=== PATIENT | male | born 1930 | race Caucasian/White ===

== ENCOUNTER 2016-05-11 12:35 | Inpatient (IN) | payer MEDICARE, OTHER ==
--- NOTE | 2016-05-11 12:46 | HP ---
SUPERVISING PHYSICIAN: ANA EDMOND MD CHIEF COMPLAINT: Right foot pain. HISTORY OF PRESENT ILLNESS: This is an 85 year-old male patient who was seeing his primary care physician, Dr. Adams, this morning because his right foot was hurting. He stated that about a week ago, he has a callous on the bottom of his foot and it started hurting and in the last 2 days it has gotten very swollen, very reddened and is also painful. He went to see Dr. Adams today and Dr. Adams saw that he had some cellulitis that most likely originated from the callous on the ball of his foot. His foot was very tender to palpation. He was able to palpate a pedal pulse but he could not obtain a dorsalis pedis due to the edema. Blood work was done at [facility] and he had a white count of 13 and an ESR of 24. His glucose was 154 without any history of diabetes. BUN was 27, creatinine 1.5, sodium 139, potassium 4.3, chloride 102, C02 of 26, calcium 8.6. He was having a difficult time walking on his foot and I was called for a direct admission for cellulitis to that right foot. PAST MEDICAL HISTORY: 1. Mild chronic obstructive pulmonary disease. 2. Gastroesophageal reflux disease. 3. Hyperlipidemia. 4. Myocardial infarction. 5. Hypertensive heart disease with a sent placement. He had an echocardiogram done in 2011 with an ejection fraction of 60 to 65%. 6. Benign prostatic hypertrophy. PAST SURGICAL HISTORY: 1. Appendectomy. 2. Bilaterally cataract removal. 3. Coronary artery stent placement. 4. Bladder surgery. CURRENT MEDICATIONS: Per the EMR and awaiting verification. CODE STATUS: Full code. FAMILY HISTORY: Positive for type 2 diabetes. SOCIAL HISTORY: He is retired, he is , he has 7 children. He denies any ETOH, tobacco or illicit drug use. REVIEW OF SYSTEMS: GENERAL: Denies chills, fever or fatigue. HEENT: Denies sinus symptoms, ear pain, vision changes. CARDIOVASCULAR: Denies chest pain, tachycardia or palpitations. RESPIRATORY: Denies coughing, wheezing or shortness of breath. GI: Denies abdominal pain, constipation, diarrhea, nausea or vomiting. MUSCULOSKELETAL: Complains of right leg pain and difficulty walking. INTEGUMENT: As per the history of present illness. NEUROLOGICAL: Denies headaches. dizziness or seizures. PHYSICAL EXAMINATION: VITAL SIGNS: He is afebrile. Heart rate 69, blood pressure 123/73, respiratory rate 22, 02 saturation 92% on room air. GENERAL: This is an 85 year-old male patient who is lying in his hospital bed. He is in no acute distress. HEENT: Normocephalic and atraumatic. Pupils are equal and reactive. Oropharynx is clear. Oral mucous membranes are moist. NECK: Supple without masses. No jugular venous distention. CHEST: Clear to auscultation bilaterally. There is equal rise and fall of inspiration and expiration. CARDIOVASCULAR: Regular rate and rhythm. ABDOMEN: Soft, nondistended, non-tender. Bowel sounds are positive. SKIN/EXTREMITIES: There is cellulitis to the right foot and lower leg starting around the ankle. The right foot is warm and erythematous. The erythema extends slightly up into the posterior right leg. There is a callous on the ball of his right foot that is large, approximately 3cm. It is infected and has a large area of induration of 5-6 cm, but there is no fluctuance or drainage. NEUROLOGIC: He is awake, alert, and oriented x3. LABORATORY: As per the history of present illness with the exception that his CRP is 15.4. Blood cultures have been drawn and are awaiting results. All other labs and films have been reviewed via the EMR. ASSESSMENT: 1. Right foot cellulitis. 2. Hypertensive heart disease with an echocardiogram in 2011 showing an ejection fraction of 60 to 65%. 3. Gastroesophageal reflux disease. 4. Mild chronic obstructive pulmonary disease. 5. Myocardial infarction with a stent. 6. Hyperlipidemia. 7. Benign prostatic hypertrophy. PLAN: We will admit the patient to the hospital. I will start vancomycin per pharmacy. Will also give him some judicious fluids overnight. Repeat labs in the morning. He does have a history of this callous being infected in the past , although an MRI in 2013 showed no osteomyelitis. Continue to watch it closely. Encourage good pulmonary toilet. I have started Xopenex for DVT prophylaxis as well as Protonix also for prophylaxis. I have restarted his home medications. We will continue to monitor the patient closely and followup as needed. Dr. Edmond is the collaborating physician and available for consultation. #[id number] [facility]
[2016-05-11] MEDS ORDERED: VANCOMYCIN PER PHARMACY INJ SCH (14:30)
[2016-05-11] MEDS ORDERED: SODIUM CHLORIDE 0.9% 10 ML VIAL IV PRN (15:14)
[2016-05-11] MEDS ORDERED: VANCOMYCIN HCL INJ 500 MG VIAL ONE (15:38)
[2016-05-11] MEDS ORDERED: SODIUM CHLORIDE 0.9% 250ML 250 ML ONE (15:38)
[2016-05-11] MEDS: SODIUM CHLORIDE 0.9% 1000ML 1,000 ML IVS PRN (15:47)
[2016-05-11] MEDS ORDERED: VANCOMYCIN HCL INJ 1,000 MG, VANCOMYCIN HCL INJ 500 MG in SODIUM CHLORIDE 0.9% 250ML 25... IVPB SCH (16:00)
[2016-05-11] MEDS: IV SET AND CAP CHANGE INJ INJ SCH (17:34)
[2016-05-11] MEDS ORDERED: SODIUM CHLORIDE 0.9% (FLUSH) 10 ML SYG IV SCH (21:00)
--- NOTE | 2016-05-11 21:23 | PCM.CORE ---
Physician DVT/VTE - Prophylaxis Currently: Patient already on anticoagulation therapy - Nurse DVT Assessment & Total Each Risk Factor Represents 3 Points: Age over 75 years Each Risk Factor is 1 Point: Serious Lung disease (pnemonia <1month, COPD, emphysema,etc) DVT Assessment Score: 4 - 3-4 High Risk Treatments: Early Ambulation *, Sequential Compression Device
[2016-05-11] MEDS: ENOXAPARIN SODIUM 40 MG/0.4 ML SYG SUBCU SCH (22:44)
[2016-05-11] MEDS: PANTOPRAZOLE SODIUM IV 40 MG VIAL IV SCH (22:44)
[2016-05-11] MEDS: SODIUM CHLORIDE 0.9% (FLUSH) 10 ML SYG IV PRN (22:44)
[2016-05-12] MEDS ORDERED: VANCOMYCIN HCL INJ 500 MG VIAL ONE ×3 (02:22→15:54)
[2016-05-12] MEDS ORDERED: SODIUM CHLORIDE 0.9% 250ML 250 ML ONE ×3 (02:23→15:55)
[2016-05-12] MEDS ORDERED: VANCOMYCIN HCL INJ 1,000 MG VIAL IVPB ONE ×3 (02:23→15:55)
[2016-05-12] MEDS: SODIUM CHLORIDE 0.9% 1000ML 1,000 ML IVS PRN (03:41)
[2016-05-12] MEDS: ATORVASTATIN 10 MG TAB PO SCH (08:46)
[2016-05-12] MEDS: DUTASTERIDE 0.5 MG CAP PO SCH (08:47)
[2016-05-12] MEDS: SODIUM CHLORIDE 0.9% (FLUSH) 10 ML SYG IV SCH ×3 (10:18→21:05)
--- NOTE | 2016-05-12 13:21 | PN ---
SUPERVISING PHYSICIAN: Erick Guy MD DATE: 05/12/16 SUBJECTIVE: The patient is lying in bed. He is visiting with friends. He denies any chest pain, shortness of breath, nausea, vomiting. He still says he has some pain on the medial aspect of the Achilles that extends to the medial malleolus, but it is improved since yesterday. He states he continues to limp when he goes to the bathroom, but again that is improving. OBJECTIVE: VITAL SIGNS: Afebrile. Heart rate 60. Blood pressure 118/71. Respiratory rate 18. O2 saturation 92% to 93% on room air. GENERAL: This is an 85-year-old male patient who is lying in his hospital bed. He is in no acute distress. LUNGS: Clear to auscultation bilaterally. CARDIAC: Regular rate and rhythm. ABDOMEN: Soft, nontender, nondistended. Bowel sounds are positive. EXTREMITIES: He continues to have cellulitis to the right foot. The erythema is improved and is now distal to the medial and lateral malleolus. There is no drainage or fluctuation and the callus on the ball of his foot continues to be tender to palpation. His right pedal pulse is strong at +2. His posterior tibial pulse is very weak, although I am able to palpate it today. The foot continues to improve from yesterday. His left foot has no cyanosis, clubbing or edema. NEUROLOGIC: Awake, alert and oriented times three. LABORATORY: WBC 9.3, neutrophils 78.7, hemoglobin 13.2, hematocrit 39.6. BUN 23, creatinine 1.14. C-reactive protein from yesterday is 15.4 and his preliminary blood cultures are negative to date. All other labs and films have been reviewed via the EMR. ASSESSMENT: 1. Cellulitis of the right lower extremity. 2. Hypertensive heart disease with an echocardiogram in 2012 showing an ejection fraction of 60% to 65%. 3. Gastroesophageal reflux disease. 4. Mild chronic obstructive pulmonary disease. 5. Myocardial infarction with a stent. 6. Hyperlipidemia. 7. Benign prostatic hypertrophy. 8. Bladder problems. PLAN: We will continue with present antibiotic therapy which is vancomycin. He gets his IV antibiotics scheduled every 36 hours per pharmacy and I would like to get in at least three total doses which will be sometime on Tuesday. I have spoken with Dr. Adams and he agrees that close followup after discharge on oral antibiotics would be appropriate. I am also going to get an arterial sonogram as well as venous Doppler today. We will check his CRP on Tuesday as well as some labs. We will encourage good pulmonary toilet. We will continue to followup as needed. Dr. Guy is the collaborating physician and available for consultation. [facility][id number] [facility]
--- NOTE | 2016-05-12 15:18 | US ---
EXAM DESCRIPTION: Extremity, lower RT Arteries CLINICAL HISTORY: 85 years Male, cellulitis COMPARISON: None. TECHNIQUE: Grayscale, color Doppler and spectral Doppler imaging of the right lower extremity arteries was performed. Static images were saved to the patient's medical record. FINDINGS: Today's exam demonstrates normal waveform and peak systolic velocities of the arteries of the right lower extremity. No abrupt occlusion on today's exam. Scattered atherosclerotic disease is noted, age appropriate. IMPRESSION: No abrupt occlusion on today's study. The right posterior tibial artery, dorsalis pedis, and peroneal artery are visualized on today's study. The anterior tibial artery is poorly visualized on today's study. Electronically signed by: Jesus Still MD 05/12/2016 3:17 PM [employer]
[2016-05-12] MEDS: VANCOMYCIN HCL INJ 1,000 MG, VANCOMYCIN HCL INJ 250 MG in SODIUM CHLORIDE 0.9% 250ML 25... IVPB SCH (15:56)
[2016-05-12] MEDS ORDERED: ACETAMINOPHEN 325 MG TAB PO PRN (19:55)
[2016-05-12] MEDS ORDERED: HYDROcodone 5MG/APAP 325MG 1 EA TAB PO PRN (19:55)
[2016-05-12] MEDS: ENOXAPARIN SODIUM 40 MG/0.4 ML SYG SUBCU SCH (21:06)
[2016-05-12] MEDS: PANTOPRAZOLE SODIUM IV 40 MG VIAL IV SCH (21:06)
[2016-05-12] MEDS: TAMSULOSIN 0.4 MG CAP PO SCH (21:06)
[2016-05-13] MEDS ORDERED: SODIUM CHLORIDE 0.9% 250ML 250 ML ONE (07:49)
[2016-05-13] MEDS ORDERED: VANCOMYCIN HCL INJ 500 MG VIAL ONE (07:49)
[2016-05-13] MEDS ORDERED: VANCOMYCIN HCL INJ 1,000 MG VIAL IVPB ONE (07:50)
[2016-05-13] MEDS: DUTASTERIDE 0.5 MG CAP PO SCH (08:36)
[2016-05-13] MEDS: ATORVASTATIN 10 MG TAB PO SCH (08:36)
[2016-05-13] MEDS: SODIUM CHLORIDE 0.9% (FLUSH) 10 ML SYG IV SCH ×2 (08:37→21:30)
[2016-05-13] MEDS: VANCOMYCIN HCL INJ 1,000 MG, VANCOMYCIN HCL INJ 250 MG in SODIUM CHLORIDE 0.9% 250ML 25... IVPB SCH (16:44)
--- NOTE | 2016-05-13 18:25 | PN ---
DATE: 05/13/16 SUPERVISING PHYSICIAN: Erick Guy M.D. SUBJECTIVE: The patient is sitting up in his hospital bed. He is vising with relatives. He is continuing to ask when he can get out of the hospital although he does realize that he will have to continue his antibiotic therapy for now. He denies any chest pain, shortness of breath, nausea or vomiting, diarrhea or constipation. He stated he had a bowel movement today. His right foot continues to be painful at times, but it has improved. OBJECTIVE: He is afebrile, heart rate 58, blood pressure 107/59, respiratory rate 20, O2 sat is 91% on room air. GENERAL: This is an 85 year-old male patient who is lying in his hospital bed. He is in no acute distress. RESPIRATORY: Clear to auscultation bilaterally. CARDIAC: Regular rate and rhythm. ABDOMEN: Soft, nondistended, non-tender. Bowel sounds are positive. EXTREMITIES: No cyanosis or edema to the left lower extremity. The erythema on his right foot is along the medial portion of his foot from the medial malleolus to the heel. The dorsal portion of his foot is erythematous from mid foot extending to the toes, although his second and third toes are no longer reddened. The callus to the ball of the foot is tender to palpation. The edema is much improved since yesterday and is now about +1 from the mid foot extending distally. The foot is greatly improved from yesterday, although it is still warm. NEUROLOGIC: He is awake, alert and oriented times three. LABORATORY: Blood cultures showed no growth after 48 hours. The lower extremity ultrasound from yesterday shows no abrupt occlusion on the study of the right posterior tibial artery. The dorsalis pedis and peroneal artery are visualized on today's study and the anterior tibial artery is poorly visualized. All other labs and films have been reviewed via the EMR. ASSESSMENT: 1. Cellulitis of the right lower extremity presently on vancomycin. 2. Hypertensive heart disease with an echocardiogram in 2011 showing an ejection fraction of 60 to 65%. 3. Gastroesophageal reflux disease. 4. Mild chronic obstructive pulmonary disease. 5. Myocardial infarction with a stent. 6. Hyperlipidemia. 7. Benign prostatic hypertrophy. 8. Bladder problems. PLAN: We will continue the present supportive care as well as vancomycin IV antibiotics. The patient's creatinine has improved and he is getting vancomycin every 24 hours. I have encouraged him to keep his foot elevated on the pillow. I have also encouraged good pulmonary toilet. If the patient continues to improve, he will get a dose of vancomycin tomorrow and can be discharged home with close followup with Dr. Adams next week and sent home on some Bactrim and/or Doxycycline. I have also repeated lab including a CRP in the morning. Dr. Guy is the collaborating physician and available for consultation. #[id number] [facility]
[2016-05-13] MEDS: ENOXAPARIN SODIUM 40 MG/0.4 ML SYG SUBCU SCH (21:30)
[2016-05-13] MEDS: TAMSULOSIN 0.4 MG CAP PO SCH (21:30)
[2016-05-13] MEDS: PANTOPRAZOLE SODIUM IV 40 MG VIAL IV SCH (21:54)
[2016-05-13] MEDS: SODIUM CHLORIDE 0.9% (FLUSH) 10 ML SYG IV PRN (21:57)
[2016-05-14] MEDS: DUTASTERIDE 0.5 MG CAP PO SCH (09:03)
[2016-05-14] MEDS: ATORVASTATIN 10 MG TAB PO SCH (09:03)
[2016-05-14] MEDS: SODIUM CHLORIDE 0.9% (FLUSH) 10 ML SYG IV SCH ×2 (09:03→21:03)
[2016-05-14] MEDS: BIFIDOBACTERIUM INFANTIS 4 MG CAP PO SCH ×2 (13:30→21:04)
--- NOTE | 2016-05-14 13:49 | PN ---
SUPERVISING PHYSICIAN: Keira Garcia MD DATE: 05/14/16 SUBJECTIVE: The patient is sitting in his bed. His foot is elevated. His family is at the bedside. He denies any shortness of breath, chest pain, nausea or vomiting. He says the pain in his foot is much improved. OBJECTIVE: VITAL SIGNS: Temperature 97.9. Pulse 59. Blood pressure 120/66. Respiratory rate 20. O2 saturation 92% on room air. LUNGS: Clear to auscultation bilaterally. CARDIAC: Regular rate and rhythm. ABDOMEN: Soft, nontender, nondistended. Bowel sounds are positive. EXTREMITIES: No cyanosis, clubbing or edema to the left lower extremity. The erythema on his right foot continues to improve daily and today the skin on the medial aspect of his right lower leg and around the medial malleolus is actually somewhat wrinkled as the edema has completely disappeared. It is only mildly tender to palpation along the medial portion of the Achilles tendon. His pedal and posterior tibial pulses are +1 and palpable on the right foot. NEUROLOGIC: Awake, alert and oriented times three. LABORATORY: Hemoglobin and hematocrit are stable at 13.5 and 40.5. Neutrophils have improved to 64.5. Sodium 140, potassium 4.3, chloride 106, carbon dioxide 27, BUN 21, creatinine 1.42. Baseline creatinine is approximately 1.4. C-reactive protein was 15.4 on admission and is now improved to 5.1. All other labs and films have been reviewed via the EMR. ASSESSMENT: 1. Cellulitis of the right lower extremity, presently on vancomycin. 2. Hypertensive heart disease with an echocardiogram in 2011 showing an ejection fraction of 60% to 65%. 3. Gastroesophageal reflux disease. 4. Mild chronic obstructive pulmonary disease. 5. Myocardial infarction with a stent. 6. Renal insufficiency. 7. Hyperlipidemia. 8. Benign prostatic hypertrophy. PLAN: We will continue present supportive care including continuing his vancomycin. During his hospital stay, anytime he leaves his foot in a dependent position for very long, it becomes very edematous and reddened. At this point, he is progressing so nicely with the vancomycin, I would really like to get another administration of vancomycin today and tomorrow. He will be sent home with doxycycline and Bactrim, so I have sent those prescriptions with his son so he can get them filled in anticipation of discharge tomorrow afternoon. He has a followup appointment with Dr. Adams next , but during the next few days, I believe it would be beneficial for him to be followed by home health due to his poor mobility and just to follow the wound over the next few days as he is transitioned to oral antibiotics. He has requested that [facility] be contacted for his care and we have done so. At this point, I will recheck his CBC and BMP in the morning. Hopefully, he can be discharged tomorrow after his vancomycin dose. For now, we will continue to monitor him closely and followup as needed. #[id number] [facility]
[2016-05-14] MEDS ORDERED: VANCOMYCIN HCL INJ 1,000 MG, VANCOMYCIN HCL INJ 250 MG in SODIUM CHLORIDE 0.9% 250ML 25... IVPB SCH (15:00)
[2016-05-14] MEDS: IV SET AND CAP CHANGE INJ INJ SCH (15:00)
[2016-05-14] MEDS ORDERED: VANCOMYCIN HCL INJ 500 MG VIAL ONE (15:14)
[2016-05-14] MEDS ORDERED: SODIUM CHLORIDE 0.9% 250ML 250 ML ONE (15:15)
[2016-05-14] MEDS ORDERED: VANCOMYCIN HCL INJ 1,000 MG VIAL IVPB ONE (15:15)
[2016-05-14] MEDS ORDERED: VANCOMYCIN HCL INJ 1,000 MG, VANCOMYCIN HCL INJ 500 MG in SODIUM CHLORIDE 0.9% 250ML 25... IVPB SCH (15:30)
[2016-05-14] MEDS ORDERED: VANCOMYCIN HCL INJ 1,000 MG, VANCOMYCIN HCL INJ 500 MG in SODIUM CHLORIDE 0.9% 250ML 25... IVPB ONE (15:30)
[2016-05-14] MEDS: ENOXAPARIN SODIUM 40 MG/0.4 ML SYG SUBCU SCH (21:04)
[2016-05-14] MEDS: TAMSULOSIN 0.4 MG CAP PO SCH (21:04)
[2016-05-14] MEDS: PANTOPRAZOLE SODIUM IV 40 MG VIAL IV SCH (21:05)
[2016-05-15 06:36] VITALS: BP 107/59; TEMP 98.4; O2SAT 94
[2016-05-15] MEDS: BIFIDOBACTERIUM INFANTIS 4 MG CAP PO SCH (08:57)
[2016-05-15] MEDS: SODIUM CHLORIDE 0.9% (FLUSH) 10 ML SYG IV SCH (08:57)
[2016-05-15] MEDS: ATORVASTATIN 10 MG TAB PO SCH (08:57)
[2016-05-15] MEDS: DUTASTERIDE 0.5 MG CAP PO SCH (08:59)
--- NOTE | 2016-05-15 11:39 | DS ---
SUPERVISING PHYSICIAN: Romreo Garcia M.D. DISCHARGE DIAGNOSIS: 1. Cellulitis of the right lower extremity presently on vancomycin and to be discharged home on Doxycycline and vancomycin. 2. Hypertensive heart disease with an echocardiogram in 2011 showing an ejection fraction of 60 to 65%. 3. Gastroesophageal reflux disease. 4. Mild chronic obstructive pulmonary disease. 5. Myocardial infarction with stent. 6. Renal insufficiency. 7. Hyperlipidemia. 8. Benign prostatic hypertrophy. HISTORY OF PRESENT ILLNESS: This is an 85 year-old male patient who was seen in his primary care physician's office, Dr. Adams, because his right foot was hurting. About a week prior to admission, his foot began to hurt and he has a callus on the ball of his right foot. Two day prior to admission it had gotten very swollen and very reddened. It was also extremely painful. He went to see Dr. Adams and Dr. Adams called me for admission to the hospital. It is to be noted that he has had an infection in this foot several years ago. His blood work at [facility] had a white count of 13 and ESR of 24, glucose 154 without any history of diabetes. BUN 27, creatinine 1.5, sodium 139, potassium 4.3, chloride 102, CO2 of 26, calcium 8.6. He had a difficult time walking on the foot and I was called for direct admission for cellulitis of that foot. HOSPITAL COURSE: The patient was admitted to the hospital and placed on vancomycin antibiotic therapy per Pharmacy. He was also given probiotics. Over the course of his stay, the redness and erythema on that right foot progressively improved. He did have some complications when he did not have it elevated as it would swell up and become more erythematous, but if the patient kept it elevated it improved so much that now the edema is completely gone and the erythema is only noted to the medial aspect of that foot just distal to the medial malleolus. The callus on the ball of his foot is now sloughing and there is no redness and just a mild amount of tenderness. He is most tender on the medial aspect of his Achilles tendon but that has improved greatly since being admitted. The patient has progressed well enough that he will be discharged home today after his vancomycin dose. DISCHARGE PLAN: The patient will be discharged in good condition after his vancomycin dose at 2:00. I have given him a prescription for Doxycycline and Bactrim to be taken at home. We have also contacted [facility] and they will assist him at home as well as evaluate him for physical therapy and continue monitoring his wound. He has an appointment with Dr. Adams on 05/07 at 10:30 AM for close followup. He has seen Dr. Blackmon in the past and it may be advised for him to get a podiatry referral. He will be discharged home in good condition to resume his previous diet and resume his previous medications. He is to continue a probiotic twice a day until he has finished with his antibiotics. His activity should be increased as tolerated and ask for physical therapy from [facility]. If he has any further problems he is to contact Dr. Adams's office or return to the hospital. DISCHARGE MEDICATIONS: 1. Meloxicam. 2. Prevacid. 3. Flomax. 4. Lipitor. 5. Nitrostat. 6. Avodart. 7. Aspirin. 8. Centrum adult. 9. Doxycycline. 10. Bactrim DS. 11. Probiotic twice a day. Dr. Garcia is the collaborating physician available for consultation. #[id number] [facility]
[2016-05-15] MEDS ORDERED: VANCOMYCIN HCL INJ 500 MG VIAL ONE (13:13)
[2016-05-15] MEDS ORDERED: SODIUM CHLORIDE 0.9% 250ML 250 ML ONE (13:13)
[2016-05-15] MEDS ORDERED: VANCOMYCIN HCL INJ 1,000 MG VIAL IVPB ONE (13:14)
[2016-05-15] MEDS ORDERED: VANCOMYCIN HCL INJ 1,000 MG, VANCOMYCIN HCL INJ 500 MG in SODIUM CHLORIDE 0.9% 250ML 25... IVPB ONE (14:00)
--- NOTE | 2016-05-17 00:38 | US ---
EXAM DESCRIPTION: Venous,Lower Extremity RT CLINICAL HISTORY: cellulitis COMPARISON: None Available. TECHNIQUE: Right lower extremity venous duplex FINDINGS: There is no DVT identified. There is normal color flow observed with good flow augmentation. All deep veins compress normally. IMPRESSION: Negative for right lower extremity DVT Electronically signed by: Jesus Still MD 05/12/2016 3:15 PM [employer]
== END 2016-05-15 14:58 | disposition home health service (06) | DRG 603 ==
LOC: MS 12:35
PROVIDERS: ADMIT Nurse Practitioner Acute Care; ATTEND Nurse Practitioner Acute Care
DX: L03.115 Cellulitis of right lower limb (principal); I11.9 Hypertensive heart disease without heart failure; K21.9 Gastro-esophageal reflux disease without esophagitis; J44.9 Chronic obstructive pulmonary disease, unspecified; I25.2 Old myocardial infarction; Z95.5 Presence of coronary angioplasty implant and graft; N28.9 Disorder of kidney and ureter, unspecified; E78.5 Hyperlipidemia, unspecified; N40.0 Benign prostatic hyperplasia without lower urinary tract symptoms

== ENCOUNTER → 2016-06-08 | Outpatient (CLI) | payer MEDICARE, OTHER | END | disposition home or self-care (01) | LOC: GMAB 10:21 | PROVIDERS: ATTEND Family Medicine | DX: Z12.5 Encounter for screening for malignant neoplasm of prostate (principal); I10 Essential (primary) hypertension | CPT/HCPCS: 84443; G0103 ==

== ENCOUNTER → 2016-08-02 | Outpatient (CLI) | payer MEDICARE, OTHER | END | disposition home or self-care (01) | LOC: GMAB 10:24 | PROVIDERS: ATTEND Family Medicine | DX: R94.6 Abnormal results of thyroid function studies (principal) ==

== ENCOUNTER 2016-11-28 15:56 | Emergency (ER) | payer MEDICARE, OTHER ==
[2016-11-28 16:21] VITALS: TEMP 97.5
--- NOTE | 2016-11-28 16:31 | ED.PDOC ---
History of Present Illness - General Chief Complaint: Skin/Abrasion/Tear Stated Complaint: skin tear Time Seen by Provider: 11/28/16 16:18 Source: patient, RN notes reviewed, Vital Signs reviewed Exam Limitations: no limitations - History of Present Illness Initial Comments: Patient comes in with c/o of a skin tear on the back of his R upper arm. 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 He has very thin skin and gets frequent tears but this is the largest one he has gotten. Denies any other injury. Timing/Duration: just prior to arrival Severity: moderate Location: extremities - RUE Improving Factors: nothing Worsening Factors: nothing Associated Symptoms: denies symptoms Allergies/Adverse Reactions: Allergies Iodide Allergy (Verified 05/11/16 12:58) Home Medications: Ambulatory Orders Aspirin [Aspirin EC] 81 mg PO BEDTIME 05/11/16 Atorvastatin Calcium [Lipitor] 10 mg PO DAILY 05/11/16 Dutasteride [Avodart] 0.5 mg PO DAILY 05/11/16 Lansoprazole [Prevacid] 30 mg PO DAILY 05/11/16 Meloxicam [Mobic] 7.5 mg PO DAILY PRN 05/11/16 Multiple Vitamins W/ Minerals [Centrum Adults] 1 tab PO DAILY 05/11/16 Nitroglycerin 0.4 mg Tab [Nitrostat] 0.4 mg SL [id number] PRN 05/11/16 Tamsulosin [Flomax] 0.4 mg PO BEDTIME 05/11/16 Doxycycline (Monohydrate) [Monodox] 100 mg PO BID #20 cap 05/14/16 Bifidobacterium Infantis [Align] 4 mg PO BID #0 cap 05/15/16 Review of Systems - Review of Systems Constitutional: States: no symptoms reported Respiratory: States: no symptoms reported Cardiology: States: no symptoms reported Musculoskeletal: States: no symptoms reported Skin: States: see HPI Neurological: States: no symptoms reported All other Systems: No Change from Baseline Past Medical History (General) - Patient Medical History Hx Seizures: No Hx Stroke: Yes Hx Asthma: No Hx of COPD: Yes Hx Cardiac Disorders: Yes - IN Hx Congestive Heart Failure: No Hx Pacemaker: No Hx Hypertension: No Hx Diabetes: No Hx MRSA: No Surgical History: appendectomy - Vaccination History Hx Tetanus, Diphtheria Vaccination: Yes Hx Influenza Vaccination: Yes Hx Pneumococcal Vaccination: No - Social History Hx Tobacco Use: Yes Hx Alcohol Use: No Hx Substance Use: No Hx Physical Abuse: No Hx Emotional Abuse: No Family Medical History - Family History Father Living Status: Hx Family Diabetes: Yes Mother Family History: Unknown Living Status: Physical Exam - Physical Exam General Appearance: Alert, Comfortable, No apparent distress, Well Developed, Well Groomed, Well Hydrated, Well Nourished Neck: supple Respiratory: no respiratory distress Extremity: normal range of motion, non-tender Neurologic: no motor/sensory deficits, alert, normal mood/affect, oriented x 3 Skin Exam: warm/dry, normal color Skin Problem Location: upper extremities - Posterior R upper arm - ~4X2.5" superficial skin tear. Bleeding controlled. Comments: Vital Signs 11/28/16 16:15 Temperature 97.5 F L Pulse Rate [ 93 H Left Brachial] Respiratory 20 Rate Blood Pressure 113/68 [Left Arm] O2 Sat by Pulse 92 L Oximetry Progress - Progress Progress: 11/28/16 16:33 LET placed over skin tear Area cleaned and dressed with antibiotic ointment and non-stick dressing by nurse. Departure - Departure Clinical Impression: Skin tear of right upper arm without complication Qualifiers: Encounter type: initial encounter Qualified Code(s): S41.111A - Laceration without foreign body of right upper arm, initial encounter Time of Disposition: 16:52 Disposition: Discharge to Home or Self Care Condition: Good Departure Forms: ED Discharge - Pt. Copy, Patient Portal Self Enrollment Instructions: DI for Abrasion Diet: resume usual diet Activity: increase activity as tolerated Referrals: Luis Felipe Adams MD [Primary Care Provider] - 1-2 Weeks Home Medications: Ambulatory Orders Aspirin [Aspirin EC] 81 mg PO BEDTIME 05/11/16 Atorvastatin Calcium [Lipitor] 10 mg PO DAILY 05/11/16 Dutasteride [Avodart] 0.5 mg PO DAILY 05/11/16 Lansoprazole [Prevacid] 30 mg PO DAILY 05/11/16 Meloxicam [Mobic] 7.5 mg PO DAILY PRN 05/11/16 Multiple Vitamins W/ Minerals [Centrum Adults] 1 tab PO DAILY 05/11/16 Nitroglycerin 0.4 mg Tab [Nitrostat] 0.4 mg SL [id number] PRN 05/11/16 Tamsulosin [Flomax] 0.4 mg PO BEDTIME 05/11/16 Doxycycline (Monohydrate) [Monodox] 100 mg PO BID #20 cap 05/14/16 Bifidobacterium Infantis [Align] 4 mg PO BID #0 cap 05/15/16 Additional Instructions: Clean and dress wound with antibiotic ointment twice daily.
[2016-11-28] MEDS ORDERED: NEOMYCIN-BACITRACIN-POLYMYXIN 0.9 GM UD TOP ONE (16:41)
[2016-11-28 17:01] VITALS: BP 120/68; O2SAT 90
== END 2016-11-28 17:01 | disposition home or self-care (01) ==
LOC: ER 15:56
DX: S41.111A Laceration without foreign body of right upper arm, initial encounter (principal); I25.2 Old myocardial infarction; J44.9 Chronic obstructive pulmonary disease, unspecified; Z86.73 Personal history of transient ischemic attack (TIA), and cerebral infarction without residual deficits; Z79.82 Long term (current) use of aspirin; Z87.891 Personal history of nicotine dependence; Z88.8 Allergy status to other drugs, medicaments and biological substances

== ENCOUNTER → 2016-12-07 | Outpatient (CLI) | payer MEDICARE, OTHER | END | disposition home or self-care (01) | LOC: GMAB 17:45 | PROVIDERS: ATTEND Family Medicine | DX: G30.9 Alzheimer's disease, unspecified (principal) ==

== ENCOUNTER → 2016-12-14 | Outpatient (CLI) | payer MEDICARE, OTHER ==
--- NOTE | 2016-12-14 15:35 | MRI ---
EXAM DESCRIPTION: Brain w/oContrast CLINICAL HISTORY: ALZHEIMERS COMPARISON: None TECHNIQUE: Multiplanar, multi sequence MR images of the head are obtained without IV gadolinium contrast using standard imaging protocol. FINDINGS: The midline structures are not displaced. Sulci are age appropriate. The lateral, third, and fourth ventricles are normal in size, shape, and anatomic positioning. Normal cohen-white differentiation is seen. Normal flow voids are seen in the major intracranial vessels including the dural venous sinuses. There is a 13 x 9 mm oval flow void or area of decreased signal on all imaging sequences projecting anterior to the right knee right clinoid ICA. There is no evidence of mass, mass effect, hydrocephalus, or acute intracranial hemorrhage. No abnormal extra-axial fluid collections are seen. Mild scattered foci of increased FLAIR/T2 signal are seen in the periventricular white matter and white matter of the centrum semiovale. Mild linear areas of increased FLAIR and T2 signal are seen in the upper ashley to medulla region. No diffusion restriction is identified. Gradient echo images show no abnormal signal. The pituitary is unremarkable. Visualized paranasal sinuses are unremarkable. The visualized orbits and mastoid air cells are unremarkable. IMPRESSION: Age-appropriate atrophy to somewhat advanced diffuse cerebral and cerebellar cortical atrophy and central atrophy is seen. Mild old small vessel ischemic type changes are identified. No MRI evidence of acute intracranial ischemia, mass, or mass effect. Question flow void extending anterior to the right of the supraclinoid ICA on the right measuring 13 x 9 mm that could represent aneurysm. Consider further evaluation with CTA or MRA imaging of the head. This would be an unusual location for extra pneumatization of the skull. Electronically signed by: Pee Briseno MD 12/14/2016 3:34 PM CDT
== END | disposition home or self-care (01) ==
LOC: MRI 14:02
PROVIDERS: ATTEND Family Medicine
DX: G30.9 Alzheimer's disease, unspecified (principal)

== ENCOUNTER → 2016-12-30 | Outpatient (CLI) | payer MEDICARE, OTHER ==
--- NOTE | 2016-12-30 13:25 | CT ---
EXAM DESCRIPTION: Head CLINICAL HISTORY: 86 years, Male, ALZHEIMER DEMENTIA COMPARISON: MR brain December 14 FINDINGS: Unenhanced images through the brain. This examination was performed according to our departmental dose optimization program, which includes automatic exposure control, adjustment of the MA and/or kV according to the patient size and/or use of iterative reconstruction technique. No intracranial hemorrhage or mass. Mild microischemic change periventricular white matter similar to recent MRI study. Physiologic basal ganglia calcification. Mild ethmoid sinus mucosal thickening. IMPRESSION: No intracranial hemorrhage or mass. Mild microischemic change periventricular white matter. Electronically signed by: Abelardo Broderick MD 12/30/2016 1:24 PM CDT
== END | disposition home or self-care (01) ==
LOC: CT 08:55
PROVIDERS: ATTEND Family Medicine
DX: M89.00 Algoneurodystrophy, unspecified site (principal)

== ENCOUNTER → 2017-01-04 | Outpatient (CLI) | payer MEDICARE, OTHER | END | disposition home or self-care (01) | LOC: GMAB 16:45 | PROVIDERS: ATTEND Family Medicine | DX: G47.62 Sleep related leg cramps (principal) ==

== ENCOUNTER → 2017-06-06 | Outpatient (CLI) | payer OTHER | LOC: GMAB 17:13 | PROVIDERS: ATTEND Family Medicine | DX: L03.115 Cellulitis of right lower limb (principal); L84 Corns and callosities ==

== ENCOUNTER → 2017-06-13 | Outpatient (CLI) | payer OTHER | LOC: GMAB 18:30 | PROVIDERS: ATTEND Family Medicine | DX: N39.0 Urinary tract infection, site not specified (principal); I10 Essential (primary) hypertension; Z12.5 Encounter for screening for malignant neoplasm of prostate ==

== ENCOUNTER → 2017-06-28 | Outpatient (CLI) | payer OTHER | END | disposition home or self-care (01) | LOC: GMAB 12:07 | PROVIDERS: ATTEND Family Medicine | DX: N39.0 Urinary tract infection, site not specified (principal) ==

== ENCOUNTER → 2017-07-06 | Outpatient (CLI) | payer OTHER ==
--- NOTE | 2017-07-06 09:38 | CT ---
EXAM DESCRIPTION: CT ABDOMEN AND PELVIS WITHOUT AND WITH CONTRAST CLINICAL HISTORY: ASYMPTOMATIC MICROHEMATURIA COMPARISON: None Available. TECHNIQUE: CT of the abdomen and pelvis are performed prior to and during IV bolus administration of 100 mL of Isovue 300. Oral contrast media is administered as well. FINDINGS: Tiny nodule in the right middle lobe lateral segment measures 2 mm. Another tiny nodule in the anterior segment right middle lobe measures 3 mm. See recommendations for follow-up of pulmonary nodules below. Fibrotic changes are seen in the lung bases, fairly extensive. There is involvement of the inferior lingula and inferior right middle lobe as well. Subpleural cyst in the posterior right lower lobe is incidentally noted. Coronary artery calcification is present. The heart is moderately enlarged. Precontrast images through the upper abdomen show tiny calculi in the kidneys 1 to 2 mm on the left and 1 mm on the right without obstructive uropathy. Ectatic infrarenal abdominal aorta is noted. This measures 2.3 cm. No further follow-up is needed. Postcontrast images are evaluated. Liver is normal in size and parenchymal appearance. Tiny lesion in the central right lobe of the liver 7 mm may represent cyst or unenhanced hemangioma (image 22, series 4). No calcified gallstones. Small hiatal hernia. Normal adrenal glands. Early enhancement of the spleen is within normal limits. Renal cysts are present bilaterally. No free air or free fluid. Moderate amount of fecal material seen in the colon. Spleen, pancreas, and kidneys are otherwise unremarkable. There is no lymphadenopathy, inflammation, or free fluid observed. In the pelvis, a mass is seen in the bladder which is positively enhancing. The mass measures 4.5 x 4.5 x 3.6 cm consistent with transitional cell carcinoma. Enlarged prostate is present, clearly separate from the bladder mass measuring 4.8 cm in transverse dimension. No extension beyond the bladder wall is seen. There is mild diffuse bladder wall thickening suggesting chronic partial subvesical obstruction due to the enlarged prostate. There is invagination of bladder base by enlarged prostate. Small right inguinal hernia is present. Comparing the pre and postcontrast images through the pelvis, the bladder mass is positively enhancing. Delayed CT images show persistence of right lobe liver lesion consistent with a cyst. Positive accumulation of contrast in the urinary collecting systems. Bladder wall thickness is prominent with small bladder diverticulum of the upper anterior left side of the bladder. There is contrast accumulation within the dependent portion of the bladder. Prostate enhances inhomogeneously. Correlate with PSA level and endorectal sono the prostate if indicated. Coronal and sagittal reformatted images confirm the findings. No inflammation around the cecum or terminal ileum or sigmoid colon. Appendix is not identified. Normal pelvic small bowel loops. No pelvic adenopathy. Advanced degenerative changes lower lumbar spine. I telephoned Dr. Adams and discussed the above results with him at the time of image interpretation 9:30 AM on 07/06/2017. IMPRESSION: Mass involving the anteroinferior bladder wall protruding into the bladder lumen measuring 4.5 x 4.5 x 3.6 cm consistent with transitional cell carcinoma. Enlarged prostate. Renal lesions consistent with cysts. Tiny renal calculi without obstructive uropathy. Extensive bilateral lower lobe pulmonary fibrosis. Tiny lower lobe pulmonary nodules probably granulomas. Follow up as per criteria listed below. 2017 Fleischner Society Recommendations for Multiple Solid Lung Nodules Follow-Up base on size (average of long- and short-axis diameters). Use most suspicious nodule for followup. Nodule Size <6 mm Low-Risk Patient: No routine follow-up Nodule Size <6 mm High-Risk Patient: Optional CT at 12 months This exam was performed according to our departmental dose-optimization program, which includes automated exposure control, adjustment of the mA and/or kV according to patient size and/or use of iterative reconstruction technique. Total DLP dose 2853.3 mGycm. Electronically signed by: Cristobal Han MD 07/06/2017 9:36 AM CDT
== END ==
LOC: CT 08:10
PROVIDERS: ATTEND Family Medicine
DX: R31.21 Asymptomatic microscopic hematuria (principal); N32.89 Other specified disorders of bladder; N20.0 Calculus of kidney; N40.0 Benign prostatic hyperplasia without lower urinary tract symptoms

== ENCOUNTER → 2017-12-15 | Outpatient (CLI) | payer OTHER | LOC: GMAE 17:34 | PROVIDERS: ATTEND Family Medicine | DX: R06.02 Shortness of breath (principal) ==

== ENCOUNTER 2017-12-20 13:43 | Inpatient (IN) | payer OTHER ==
--- NOTE | 2017-12-20 14:40 | ED.PDOC ---
History of Present Illness - General Chief Complaint: Respiratory Problem Stated Complaint: shortness of breath Time Seen by Provider: 12/20/17 14:21 Source: patient Exam Limitations: no limitations - History of Present Illness Initial Comments: C/O SOB. PT REPORTS 2 WK HX OF PROGRESSIVE LEMON. WAS AT HIS DR'S OFFICE TODAY AND WAS INSTRUCTED TO COME TO ER. Severity: moderate Activities at Onset: activity Possible Cause: no prior episodes Improving Factors: nothing Worsening Factors: movement Associated Symptoms: weakness Allergies/Adverse Reactions: Allergies Iodide Allergy (Unknown, Verified 12/20/17 13:59) Home Medications: Ambulatory Orders Aspirin [Aspirin EC] 81 mg PO BEDTIME 05/11/16 Atorvastatin Calcium [Lipitor] 10 mg PO DAILY 05/11/16 Dutasteride [Avodart] 0.5 mg PO DAILY 05/11/16 Lansoprazole [Prevacid] 30 mg PO DAILY 05/11/16 Meloxicam [Mobic] 7.5 mg PO DAILY PRN 05/11/16 Multiple Vitamins W/ Minerals [Centrum Adults] 1 tab PO DAILY 05/11/16 Nitroglycerin 0.4 mg Tab [Nitrostat] 0.4 mg SL [id number] PRN 05/11/16 Tamsulosin [Flomax] 0.4 mg PO BEDTIME 05/11/16 Doxycycline (Monohydrate) [Monodox] 100 mg PO BID #20 cap 05/14/16 Bifidobacterium Infantis [Align] 4 mg PO BID #0 cap 05/15/16 Review of Systems - Review of Systems Constitutional: Denies: chills, fever EENTM: States: no symptoms reported Respiratory: States: short of breath. Denies: cough, orthopnea, wheezing Cardiology: Denies: chest pain, palpitations, syncope Gastrointestinal/Abdominal: Denies: abdominal pain, nausea, vomiting Genitourinary: States: no symptoms reported Musculoskeletal: States: no symptoms reported Skin: States: no symptoms reported Neurological: States: no symptoms reported Endocrine: States: no symptoms reported Hematologic/Lymphatic: States: no symptoms reported Past Medical History (General) - Patient Medical History Hx Seizures: No Hx Stroke: Yes Hx Asthma: No Hx of COPD: No Hx Cardiac Disorders: Yes - CAD Hx Congestive Heart Failure: No Hx Pacemaker: No Hx Hypertension: Yes Hx Diabetes: No Hx Cancer: No Hx Hepatitis C: No Hx MRSA: No Surgical History: no surgical history - Vaccination History Hx Tetanus, Diphtheria Vaccination: Yes Hx Influenza Vaccination: Yes Hx Pneumococcal Vaccination: No Immunizations Up to Date: No - Social History Hx Tobacco Use: No Hx Chewing Tobacco Use: No Hx Alcohol Use: No Hx Substance Use: No Hx Substance Use Treatment: No Hx Depression: No Feels Threatened In Home Enviroment: No Feels Threatened In a Relationship: No Hx Physical Abuse: No Hx Emotional Abuse: No Hx Suspected Abuse: No - Female History Patient is a Female of Child Bearing Age (10 -59 yrs old): No Patient : No Family Medical History - Family History Father Living Status: Hx Family Diabetes: Yes Mother Family History: Unknown Living Status: Physical Exam - Physical Exam General Appearance: Alert, No apparent distress Eyes, Ears, Nose, Throat Exam: PERRL/EOMI, normal ENT inspection Neck: non-tender, full range of motion, supple Respiratory: chest non-tender, no respiratory distress - SATS 86% ON RA, ( HYPOXIC), rales - RLL Cardiovascular/Chest: regular rate, rhythm, systolic murmur - 2/6 Gastrointestinal/Abdominal: non tender, soft, no organomegaly Extremity: normal range of motion, non-tender, normal inspection, other - TR EDEMA Neurologic: alert, normal mood/affect Skin Exam: normal color, warm/dry Lymphatic: no adenopathy Progress - Progress Progress: 12/20/17 16:18 STABLE ON O2. PT CANNOT TRAVEL TO [place] TODAY DUE TO SOCIAL CIRCUMSTANCES. D/ W DR RICK VITAL TO ADMIT AND BEGIN DIURESIS HERE, WILL FOLLOW TOMORROW IN OFFICE OR TUESDAY AT 1030 IN [place]. 12/20/17 16:24 DISCUSS WITH BESSY SINCLAIR, WILL ADMIT - EKG/XRAY/CT EKG: Sinus - RATE 79, NL AXIS, 1ST DEGREE AV BLOCK. , no ST T wave changes - NAIP, NO OLD FOR COMPARISON CT Ordered: No Departure - Departure Clinical Impression: CHF (congestive heart failure) Qualifiers: Heart failure type: unspecified Heart failure chronicity: acute Qualified Code( s): I50.9 - Heart failure, unspecified CAD (coronary artery disease) Qualifiers: Coronary Disease-Associated Artery/Lesion type: unspecified vessel or lesion type [place] vs. transplanted heart: [place] heart Associated angina: without angina Qualified Code(s): I25.10 - Atherosclerotic heart disease of [place] coronary artery without angina pectoris ICD-10 Supporting Text: NEW ONSET Time of Disposition: 16:26 Disposition: Admit Patient Condition: Fair Departure Forms: ED Discharge - Pt. Copy, Patient Portal Self Enrollment Referrals: KANE DEJESUS MD [Primary Care Provider] - 1-2 Weeks Home Medications: Ambulatory Orders Aspirin [Aspirin EC] 81 mg PO BEDTIME 05/11/16 Atorvastatin Calcium [Lipitor] 10 mg PO DAILY 05/11/16 Dutasteride [Avodart] 0.5 mg PO DAILY 05/11/16 Lansoprazole [Prevacid] 30 mg PO DAILY 05/11/16 Meloxicam [Mobic] 7.5 mg PO DAILY PRN 05/11/16 Multiple Vitamins W/ Minerals [Centrum Adults] 1 tab PO DAILY 05/11/16 Nitroglycerin 0.4 mg Tab [Nitrostat] 0.4 mg SL [id number] PRN 05/11/16 Tamsulosin [Flomax] 0.4 mg PO BEDTIME 05/11/16 Doxycycline (Monohydrate) [Monodox] 100 mg PO BID #20 cap 05/14/16 Bifidobacterium Infantis [Align] 4 mg PO BID #0 cap 05/15/16
--- NOTE | 2017-12-20 14:56 | RAD ---
EXAM DESCRIPTION: Chest,1 View CLINICAL HISTORY: Shortness of breath COMPARISON: Chest radiograph dated June 16, 2010 FINDINGS: Calcific atherosclerosis and mild tortuosity of the thoracic aorta. Cardiac silhouette shows cardiomegaly with mild central pulmonary vascular congestion. Emphysematous changes with interstitial scarring versus early interstitial edema. Linear opacities in the bilateral lower lung zones may atelectasis versus interstitial scarring. Costophrenic angles are sharp. No pneumothorax. Degenerative changes of the thoracic spine. IMPRESSION: 1. Cardiomegaly with mild central pulmonary vascular congestion. 2. Emphysematous changes with chronic interstitial scarring. Early interstitial edema cannot be excluded. 3. Linear opacity in the bilateral lower lung zones may atelectasis versus interstitial scarring and/or edema. Electronically signed by: Jean Jorgensen MD 12/20/2017 2:55 PM CDT
[2017-12-20] MEDS ORDERED: FUROSEMIDE INJ 40 MG/4 ML VIAL IV ONE (16:26)
--- NOTE | 2017-12-20 17:13 | HP ---
SUPERVISING PHYSICIAN: Marvin Santos M.D. CHIEF COMPLAINT: Shortness of breath. HISTORY OF PRESENT ILLNESS: This is an 87 year-old male patient who came to the Emergency Room with complaints of shortness of breath. He states for the last 2 weeks or so he has been having dyspnea on exertion and progressively even worsening over the past couple of days. He went to his primary care physician's office today and was instructed to come to the Emergency Room due to his symptoms. The patient does have a cardiac history with coronary artery disease and stents in the past, but no complaints of congestive heart failure in the past. It looks as though he has had an echocardiogram at some point which was documented in the previous History and Physical to where he has hypertensive heart disease with an ejection fraction of 60 to 65%, so I would imagine that he probably has a degree of diastolic heart failure. However, in the E. R. his chest x-ray showed some pulmonary vascular congestion with cardiomegaly. CBC was unremarkable although he did have a left shift of 90% with a normal white count. Urinalysis had 3+ bacteria, negative for nitrites, negative for leukocyte esterase. BUN and creatinine were elevated at 32 and 1.77 and BNP was 651. Troponin was 0.04. Therefore he was referred for admission for congestive heart failure exacerbation which is likely undiagnosed but for now a new onset. PAST MEDICAL HISTORY: 1. Mild chronic obstructive pulmonary disease. 2. Gastroesophageal reflux disease. 3. Hyperlipidemia. 4. Myocardial infarction. 5. Coronary artery disease. 6. Hypertensive heart disease. Previous echo documented in the chart here is from 2011 with an ejection fraction of 60 to 65%. 7. Benign prostatic hypertrophy. PAST SURGICAL HISTORY: 1. Appendectomy. 2. Bilateral cataract removal. 3. PTCA with stent in the past. 4. Bladder surgery. CURRENT MEDICATIONS: Have not been verified in the computer as of yet. ALLERGIES: IODINE. FAMILY HISTORY: Type 2 diabetes. SOCIAL HISTORY: The patient is retired, . No alcohol. No illicit drugs. REVIEW OF SYSTEMS: CONSTITUTIONAL: No fever or chills. No recent weight loss or weight gain. HEENT: No headaches, vision changes, ear pain, nasal congestion or throat pain. CARDIOVASCULAR: No chest pain. No palpitations. No peripheral edema. RESPIRATORY: No cough, hemoptysis or pleuritic chest pains. Has had shortness of breath. GASTROINTESTINAL: No nausea, vomiting, diarrhea, constipation or abdominal pain. GENITOURINARY: No dysuria. Positive for frequency. No flank pain. MUSCULOSKELETAL: No joint pain, joint swelling or muscle cramps. ENDOCRINE: No polydipsia, polyuria or polyphagia. No heat or cold intolerance. NEUROLOGIC: No headaches, vision changes, paresthesias, seizures or syncope. PHYSICAL EXAMINATION: VITAL SIGNS: Blood pressure 138/87, heart rate 72, respiratory rate 17, temperature 97.5, oxygen saturation 92%. GENERAL: Mr. Andrade is an 87 year-old male patient in mild respiratory distress at rest. HEENT: Head is normocephalic and atraumatic. Eyes: Pupils are equal and reactive. Nose: No drainage. Throat: Moist mucosa. NECK: Supple. Midline trachea. No jugular venous distention. CHEST: Symmetrical with equal rise and fall of the chest with inspiration and expiration. Lung sounds are diminished but otherwise clear to auscultation bilaterally. CARDIOVASCULAR: Regular rate and rhythm. Normal S1 and S2. ABDOMEN: Soft. Positive bowel sounds. GENITOURINARY: Deferred. EXTREMITIES: Lower extremities with trace ankle edema, 2+ pulses. Capillary refill is less than 2 seconds. NEUROLOGIC: The patient is alert and oriented. Moves all extremities. Extraocular movements are intact. LABORATORY: Labs and films are as discussed in the History of Present Illness. ASSESSMENT: 1. Congestive heart failure exacerbation, new onset. 2. History of coronary artery disease with no current chest pain or evidence of myocardial infarction. 3. History of chronic obstructive pulmonary disease with no acute exacerbation. 4. Hypertension which is controlled at this point. 5. Chronic renal insufficiency. 6. Urinary tract infection. PLAN: At this time the patient will be admitted under congestive heart failure protocol. He is being placed on scheduled diuretics. I will recheck a chest x- ray in the morning as well as lab results. His stroke coordinator, Dr. Gonzalez, has been contacted and states that he can either be seen tomorrow in [place] after about 1:30 in the afternoon or Tuesday in [place] in the morning at 10:30. This will all be dependent on his symptoms in the morning. I will resume his home medications once they are verified in the computer as well. I have placed him on empiric Cipro for the urinary tract infection as well. #[id number] [facility]
[2017-12-20] MEDS ORDERED: NITROGLYCERIN 0.4 MG 25 EA TAB SL PRN (18:02)
[2017-12-20] MEDS ORDERED: SODIUM CHLORIDE 0.9% (FLUSH) 10 ML SYG IV PRN (18:02)
[2017-12-20] MEDS ORDERED: IV SET AND CAP CHANGE INJ INJ SCH (18:30)
[2017-12-20] MEDS: ENOXAPARIN SODIUM 40 MG/0.4 ML SYG SUBCU SCH (18:52)
[2017-12-20] MEDS: ASPIRIN (ENTERIC COATED) 81 MG TAB PO SCH (21:36)
[2017-12-20] MEDS: CARVEDILOL 3.125 MG TAB PO SCH (21:36)
[2017-12-20] MEDS: CIPROFLOXACIN 500 MG TAB PO SCH (21:36)
--- NOTE | 2017-12-21 07:19 | RAD ---
PROCEDURE: XR Chest, 1 View CLINICAL INDICATION: The patient is 87 years old and is Male; CHF TECHNIQUE: Frontal view of the chest. COMPARISON: Comparison is made to the prior study dated 08/10/2017. Prior films from yesterday are unavailable. FINDINGS: LIMITATIONS: The patient is rotated, which can compromise assessment. LUNGS: There is continued scarring in the LEFT lower lobe suspected. Atelectasis is also a possibility. Pulmonary vascularity is within normal limits. PLEURAL SPACE: There is NO pneumothorax. There are no pleural effusions noted. The LEFT costophrenic sulcus is not included. HEART: The heart size is mildly enlarged MEDIASTINUM: The mediastinal contour is unremarkable. BONES/JOINTS: There are degenerative changes of the spine identified. VASCULATURE: The aorta is uncoiled. TUBES, LINES AND DEVICES: There are electrocardiogram leads present. IMPRESSION: There is continued scarring in the LEFT lower lobe suspected. Atelectasis is also a possibility. Electronically signed by: Cale Hernandez MD 12/21/2017 7:18 AM CDT
[2017-12-21] MEDS: CIPROFLOXACIN 500 MG TAB PO SCH ×2 (08:52→21:09)
[2017-12-21] MEDS: CARVEDILOL 3.125 MG TAB PO SCH ×2 (08:52→21:09)
[2017-12-21] MEDS: LISINOPRIL 5 MG TAB PO SCH (08:52)
[2017-12-21] MEDS ORDERED: FUROSEMIDE INJ 40 MG/4 ML VIAL IV SCH (09:00)
--- NOTE | 2017-12-21 11:05 | PN ---
SUPERVISING PHYSICIAN: Avril Santos MD DATE: 12/21/17 SUBJECTIVE: The patient is sitting up in his bed. He is talking to his family and friends. He has no complaint of shortness of breath, coughing, nausea, vomiting or swelling of the lower extremities. He continues to get a little short of breath with exertion, but much improved since yesterday. OBJECTIVE: VITAL SIGNS: Afebrile. Heart rate 63. Blood pressure 108/68. Respiratory rate 20. O2 saturation 92% on 3.5 liters nasal cannula. Intake 700 mL, output 1200 mL, negative balance of -500. RESPIRATORY: Essentially clear to auscultation bilaterally with a few scattered , faint crackles. CARDIAC: Regular rate and rhythm. GASTROINTESTINAL: Abdomen is soft, nondistended, nontender. Bowel sounds are positive. EXTREMITIES: No cyanosis, clubbing or edema. NEUROLOGIC: Awake, alert and oriented times three. LABORATORY: Electrolytes are within normal limits with creatinine slightly improved to 1.64, TSH 3.01. WBCs 7.9, hemoglobin 13.4, hematocrit 41.3. He has a slight shift on his differential. His chest x-ray shows continued scarring of the left lower suspected, anteriorly also possibility. All other labs and films have been reviewed via the EMR. ASSESSMENT: 1. Congestive heart failure exacerbation, new onset. 2. History of coronary artery disease with no current chest pain or evidence of myocardial infarction. 3. History of chronic obstructive pulmonary disease with no acute exacerbation. 4. Hypertension which is controlled at this point. 5. Chronic renal insufficiency. 6. Urinary tract infection. PLAN: We will continue present supportive care. I will change his IV Lasix to p.o. and transition to once daily tomorrow. He can followup with Dr. Santos next week and Dr. Gonzalez on Tuesday. I will repeat his electrolytes in the morning as well as chest x-ray. Otherwise, we will continue to monitor the patient closely and follow as needed. Dr. Santos is the collaborating physician and available for consultation. #[id number] [facility]
[2017-12-21] MEDS: FUROSEMIDE 40 MG TAB PO SCH (16:56)
[2017-12-21] MEDS: ENOXAPARIN SODIUM 40 MG/0.4 ML SYG SUBCU SCH (18:01)
[2017-12-21] MEDS ORDERED: NON-FORMULARY MEDICATION 1 EA MIS (Memantine Hcl-Donepezil Hcl [Namzaric 28-10 Mg] 1 CAP) PO SCH (21:00)
[2017-12-21] MEDS: ASPIRIN (ENTERIC COATED) 81 MG TAB PO SCH (21:09)
[2017-12-21] MEDS: ATORVASTATIN 10 MG TAB PO SCH (21:10)
--- NOTE | 2017-12-22 07:46 | RAD ---
Procedure: XR CHEST 2 VIEWS Exam Date: 12/22/2017 Ordering Provider: TERRANCE SWANSON Clinical Indication: chf Comparison: 12/21/2017 Findings: Cardiomediastinal silhouette is within normal limits. Aortic calcification. No focal lung consolidation. Bibasilar subsegmental atelectasis/scarring. No pleural effusion. No pneumothorax. No acute osseous abnormality. Impression: 1. No acute abnormalities in the chest. Electronically signed by: Aashish Lilly MD 12/22/2017 7:44 AM CDT
[2017-12-22] MEDS: FUROSEMIDE 40 MG TAB PO SCH (08:30)
[2017-12-22] MEDS: CARVEDILOL 3.125 MG TAB PO SCH (08:30)
[2017-12-22] MEDS: CIPROFLOXACIN 500 MG TAB PO SCH (08:30)
[2017-12-22] MEDS: LISINOPRIL 5 MG TAB PO SCH (08:30)
[2017-12-22] MEDS: ATORVASTATIN 10 MG TAB PO SCH (08:30)
[2017-12-22 14:10] VITALS: BP 117/68; TEMP 97.3; O2SAT 93
--- NOTE | 2017-12-23 08:37 | DS ---
SUPERVISING PHYSICIAN: Avril Santos MD DISCHARGE DIAGNOSIS: 1. Congestive heart failure exacerbation, new onset, unknown etiology. No recent echocardiogram on report to review. 2. History of coronary artery disease with no current chest pain or evidence of myocardial infarction. 3. History of chronic obstructive pulmonary disease with no acute exacerbation. 4. Hypertension, well controlled. 5. Chronic renal insufficiency. 6. Urinary tract infection. HISTORY OF PRESENT ILLNESS: This is an 87-year-old male patient who came to the Emergency Room with complaints of shortness of breath. Over the previous 2 weeks or so, he had been having shortness of breath with exertion and had progressively worsened over the past couple of days. He saw his primary care physician at the clinic, Avril Santos MD, and was sent to the Emergency Room due to his symptoms. The patient does have a cardiac history with coronary artery disease and stents in the past, but no complaints of congestive heart failure in the past. It looks as though he had an echocardiogram at some point which was documented in the previous History and Physical where he has hypertensive heart disease with an ejection fraction of 60 to 65%, but I am not sure what the date is. He probably does have a degree of diastolic heart failure. In the Emergency Room, his chest x-ray showed some pulmonary vascular congestion with cardiomegaly. CBC was unremarkable although he did have a left shift on his differential. Urinalysis had 3+ bacteria, negative for nitrites, negative for leukocyte esterase. BUN and creatinine were elevated at 32 and 1.77 and BNP was 651. Troponin was 0.04. He was referred for admission for congestive heart failure, most likely new onset. HOSPITAL COURSE: The patient was admitted to the hospital and placed on the heart failure protocol. He was given scheduled Lasix as well as low dose of Coreg and lisinopril. He does have a interstate bus driver, Dr. Gonzalez, in [place]. Over the course of his hospital stay, he diuresed over 2.5 liters. His shortness of breath did decrease, but he continued to need oxygen with any exertion. Due to his poor ambulation study, home O2 was ordered for him and he is being set up with that. He walked in the halls some with assistance and oxygen. He originally had an appointment with Dr. Gonzalez today in [place] , but that was rescheduled for tomorrow with Dr. Gonzalez in [place]. Symptoms have decreased. He will be discharged home today in stable condition. DISCHARGE PLAN: The patient will be discharged home in stable condition. He is to followup with Dr. Santos in the next one to two weeks. He has an appointment with Dr. Gonzalez tomorrow in [place]. He is to resume his previous medications and also start his new medications which are carvedilol 3.125 mg b.i.d., furosemide 40 mg daily and lisinopril 2.5 mg daily as well as ciprofloxacin for 5 additional days. He is being sent home with oxygen from the hospital. Hopefully, he will get an echocardiogram and close followup for his congestive heart failure. He is to return to the hospital or call Dr. Santos's office or Dr. Gonzalez's office for any further problems or complications. DISCHARGE MEDICATIONS: 1. Prevacid. 2. Flomax. 3. Lipitor. 4. Nitrostat. 5. Avodart. 6. Aspirin. 7. Multivitamins. 8. Namzaric. 9. Coreg. 10. Cipro. 11. Lasix. 12. Lisinopril. #[id number] [facility]
== END 2017-12-22 14:55 | disposition home or self-care (01) | DRG 291 ==
LOC: ER 13:43 → MS 17:11 → OBSVTOIN 17:11
PROVIDERS: ADMIT Nurse Practitioner; ATTEND Nurse Practitioner Acute Care
DX: I13.0 Hypertensive heart and chronic kidney disease with heart failure and stage 1 through stage 4 chronic kidney disease, or unspecified chronic kidney disease (principal); I50.33 Acute on chronic diastolic (congestive) heart failure; N39.0 Urinary tract infection, site not specified; N18.9 Chronic kidney disease, unspecified; I25.10 Atherosclerotic heart disease of native coronary artery without angina pectoris; J44.9 Chronic obstructive pulmonary disease, unspecified; E78.5 Hyperlipidemia, unspecified; I25.2 Old myocardial infarction; N40.0 Benign prostatic hyperplasia without lower urinary tract symptoms; Z95.5 Presence of coronary angioplasty implant and graft; Z91.048 Other nonmedicinal substance allergy status; Z79.1 Long term (current) use of non-steroidal anti-inflammatories (NSAID); Z79.82 Long term (current) use of aspirin; Z79.899 Other long term (current) drug therapy; Z86.73 Personal history of transient ischemic attack (TIA), and cerebral infarction without residual deficits

== ENCOUNTER → 2018-01-03 | Outpatient (CLI) | payer OTHER ==
[~2018-01-03] MED LIST: IPRATROPIUM/ALBUTEROL 3 ML VIAL NEB ONE
--- NOTE | 2018-01-03 12:16 | CT ---
EXAM DESCRIPTION: Chest w/o Contrast CLINICAL HISTORY: 87 years Male, SHORTNESS OF BREATH COMPARISON: Radiographs of the chest dated 12/22/2017. TECHNIQUE: Contiguous thin section axial images through the chest were obtained after the administration of intravenous contrast. Sagittal and coronal reconstructions were reviewed. FINDINGS: The visualized thyroid gland and supraclavicular region appear normal. No evidence of abnormally enlarged mediastinal, hilar or axillary lymphadenopathy. Trachea is midline and the central tracheobronchial tree is patent. Emphysematous changes are identified in both lungs. There is scarring is noted in the bilateral lung apices. No nodules or masses are visualized. No evidence of pleural effusions. The heart is normal in size with no pericardial effusion. The ascending thoracic aorta is ectatic. The descending thoracic aorta is mildly aneurysmal measuring up to 3.3 cm in the proximal portion. The distal descending portion measures 3 cm. The superior vena cava is normal in size and caliber. Mild to moderate coronary artery atherosclerosis. Small hiatal hernia is noted. Limited evaluation of the upper abdomen demonstrates no gross abnormality. Changes of diffuse idiopathic skeletal hyperostosis are noted throughout the thoracic spine. IMPRESSION: 1. Emphysema. 2. Mild aneurysmal dilatation of the descending thoracic aorta measuring up to 3.3 cm Recommend follow-up every 3 years. Reference: J Vasc Surg 2009 Oct;50(4 Suppl):S2-49. This exam was performed according to our departmental dose-optimization program, which includes automated exposure control, adjustment of the mA and/or kV according to patient size and/or use of iterative reconstruction technique. Electronically signed by: Rosalee Wiley MD 01/03/2018 12:14 PM CDT
== END ==
LOC: CT 09:32
PROVIDERS: ATTEND Family Medicine
DX: R06.02 Shortness of breath (principal); J43.9 Emphysema, unspecified; I71.2 Thoracic aortic aneurysm, without rupture
CPT/HCPCS: 71250; 94060; J7620

== ENCOUNTER → 2018-01-20 | Outpatient (CLI) | payer OTHER ==
[~2018-01-20] MED LIST changes: +ALBUTEROL SULFATE 2.5 MG/3 ML VIAL NEB ONE; -IPRATROPIUM/ALBUTEROL 3 ML VIAL NEB ONE
== END ==
LOC: RESP 10:34
PROVIDERS: ATTEND Family Medicine
DX: R06.02 Shortness of breath (principal)
CPT/HCPCS: 94060; J7611

== ENCOUNTER → 2018-01-24 | Outpatient (CLI) | payer OTHER | LOC: GMAE 17:38 | PROVIDERS: ATTEND Family Medicine | DX: R06.02 Shortness of breath (principal) ==

== ENCOUNTER 2018-09-27 13:09 | Inpatient (IN) | payer OTHER ==
--- NOTE | 2018-09-27 13:13 | HP ---
SUPERVISING PHYSICIAN: Avril Santos MD CHIEF COMPLAINT: Shortness of breath and weight gain. HISTORY OF PRESENT ILLNESS: Mr. Andrade is an 87-year-old male patient that was seen in the clinic today after he had noted he had about a 7-pound weight gain over the last 7 days and developed worsening peripheral edema with exertional dyspnea. He does utilize oxygen at night and was in the mid-80s on room air at rest. Normally during the day, he is without any need for oxygen. He does have a history of COPD and previous myocardial infarction. He was in the hospital in the last 6 months for new onset of congestive heart failure with last echocardiogram noted to be in 2011 showing a preserved ejection fraction of 60% to 65%. The patient is a very poor historian and most of the history was obtained from previous medical records and clinic charts. Laboratory studies in the clinic showed an unremarkable CBC. EKG showed sinus rhythm with a first degree AV block. Chest x-ray showed pulmonary infiltrates, slightly worsened compared to previous exams from 08/10/17. Given the patient's age and increasing shortness of breath and acute weight gain, the patient was referred to the hospital for admission for having failed to respond to outpatient treatment measures for congestive heart failure with acute exacerbation and for further evaluation and treatment. His laboratory studies on admission to the hospital showed his BNP was elevated at 595. The patient denied any chest pain at time of admission. He was in no acute distress and in stable condition at time of admission. PAST MEDICAL HISTORY: 1. Chronic obstructive pulmonary disease. 2. Gastroesophageal reflux disease. 3. Hyperlipidemia. 4. Myocardial infarction. 5. Coronary artery disease. 6. Hypertensive heart disease with last echocardiogram in 2011 showing ejection fraction at that time of 60% to 65%. 7. Benign prostatic hypertrophy. PAST SURGICAL HISTORY: 1. Appendectomy. 2. Bilateral cataract removal. 3. Percutaneous transluminal coronary angioplasty with stent placement. 4. Bladder surgery. CURRENT MEDICATIONS: 1. Flomax 0.4 mg. 2. Sertraline 50 mg at bedtime. 3. Omeprazole 40 mg daily. 4. Nitroglycerin tablets as needed. 5. Multivitamin 1 tablet daily. 6. Megestrol 40 mg q.i.d. 7. Losartan 25 mg daily. 8. Lasix 40 mg daily. 9. Donepezil 10 mg daily. 10. Lipitor 10 mg daily. 11. Aspirin 81 mg daily. ALLERGIES: IODINE. FAMILY HISTORY: Positive for type 2 diabetes in his father. Mother's medical history is unknown. SOCIAL HISTORY: The patient is , retired. He does live in [place], [place]. He does have 7 children. He has never smoked and does not use illicit drugs or alcohol. REVIEW OF SYSTEMS: CONSTITUTIONAL: He notes general malaise, but denies any fevers, chills. Positive for 7-pound weight gain in the last week. HEENT: Negative for sore throats, earaches, nasal congestion, vision changes, headaches. He does wear hearing aids. RESPIRATORY: Positive for shortness of breath, more so with exertion. No wheezing or productive sputum. CARDIOVASCULAR: As noted in history of present illness, positive for exertional dyspnea acutely, but no reported chest pains, syncope, tachycardia. Positive for peripheral edema. GASTROINTESTINAL: Negative for nausea, vomiting, diarrhea, constipation or abdominal pain. GENITOURINARY: He has a history of benign prostatic hypertrophy. Negative for hematuria, polyuria. MUSCULOSKELETAL: Negative for joint aches, swelling. NEUROLOGIC: Negative for ataxia, seizures, syncope, vision changes or any other focal sensory deficits. HEMATOLOGICAL: Negative for easy bleeding or transfusion reactions. PHYSICAL EXAMINATION: VITAL SIGNS: On admission to the hospital, temperature 98.2, pulse 71, blood pressure 123/72, oxygen saturation 88% on room air at rest, improved to 93% with nasal cannula at 3 liters. Admission weight 82.1 kg. GENERAL: The patient appears generally unwell in no apparent acute distress. He does look dehydrated and somewhat under-nourished, fairly thin. He is alert. HEENT: The patient has bilateral hearing aids. Oropharynx is pink with dry mucous membranes. NECK: Supple, nontender with full range of motion. No jugular venous distention noted. RESPIRATORY: Lung sounds are diminished towards the bases with some rhonchi heard bilaterally, more prominent on the right than the left. ABDOMEN: Soft, nontender. Positive bowel sounds. EXTREMITIES: 1+ edema with no cyanosis or clubbing. NEUROLOGIC: The patient is alert and oriented times three. LABORATORY: CBC on admission to the hospital showed white count 6,800, hemoglobin 12.8, hematocrit 39.4, platelet count 209,000. Differential was without a left shift. Chemistries showed normal electrolytes with just a mildly low carbon dioxide at 19. BUN 32, creatinine 1.18, glucose 137, calcium 8.9. BNP 595. RADIOLOGY: Chest x-ray in the clinic per radiologic interpretation showed small pulmonary infiltrates slightly worsened compared to previous exams with large central pulmonary artery which could indicate pulmonary hypertension. Infiltrate changes were seen on the right infra and left pericardiac region. Right lower lobe appears slightly worsened compared to previous study. ECHOCARDIOGRAM: Read by Dr Celestine Jones: Severe right ventricular dilation. Hypokinetic ventricular free wall. There is mild right atrial enlargement. There is moderate to severe tricuspid valve regurgitation. Right ventricular pressure is consistent with sever pulmonary hypertension. Normal LV size and function. Left ventricular ejection fraction estimated by 2D at 60-65 %. EK-lead EKG in the clinic showed a sinus rhythm with a first AV block with no acute ST or T-wave changes indicating ischemia or injury pattern. No acute changes compared to previous from 12/20/17. Rate was 71 beats per minute. ASSESSMENT: 1. Acute on chronic congestive heart failure with preserved ejection fraction with EF of 60-65% on echo done on admit , etiology likely due to right ventricular hypertrophy resulting in severe pulmonary hypertension presenting with increasing dyspnea, acute weight gain and BNP elevated on admission. 2. Acute exacerbation chronic obstructive pulmonary disease with bibasilar pneumonia community acquired , resulting in exacerbation of # 1 3. Gastroesophageal reflux disease. 4. Hyperlipidemia. 5. Previous myocardial infarctions. PLAN: Mr. Andrade is going to be admitted for acute exacerbation of his congestive heart failure an d acute exacerbation of COPD with community acquired pneumonia. Will start antibiotic coverage with Rocephin and azithromycin. He will be on aggressive pulmonary hygiene and duo neb treatments. We will start him on Lasix 40 mg b.i.d. IV for 24 hrs then resume normal PO Lasix. We will have him on DVT prophylaxis with Lovenox as per protocol. We will utilize oxygen as needed. We will plan to repeat his labs tomorrow with anticipation of length of stay to be at least 2 to 3 days. Until the patient can transition to outpatient management, we will continue to monitor and treat as needed. [facility][id number] [facility]
[2018-09-27] MEDS ORDERED: SODIUM CHLORIDE 0.9% (FLUSH) 10 ML SYG IV PRN (14:33)
[2018-09-27] MEDS ORDERED: ACETAMINOPHEN 325 MG TAB PO PRN (14:33)
[2018-09-27] MEDS ORDERED: MAGNESIUM HYDROXIDE 30 ML UD PO PRN (14:33)
[2018-09-27] MEDS ORDERED: ONDANSETRON INJ 4 MG/2 ML VIAL IV PRN (14:33)
[2018-09-27] MEDS ORDERED: NITROGLYCERIN 0.4 MG 25 EA TAB SL PRN (14:33)
[2018-09-27] MEDS: IV SET AND CAP CHANGE INJ INJ SCH (16:29)
[2018-09-27] MEDS: FUROSEMIDE INJ 40 MG/4 ML VIAL IV SCH ×2 (18:35→18:37)
[2018-09-27] MEDS ORDERED: SODIUM CHLORIDE 0.45% 1000ML 1,000 ML IVS PRN (18:36)
[2018-09-27] MEDS ORDERED: SODIUM CHLORIDE 0.45% 1000ML 1,000 ML IVS ONE (19:21)
[2018-09-28] MEDS: KCL 20MEQ/0.45% NS 1,000 ML IVS PRN ×2 (00:04→18:35)
--- NOTE | 2018-09-28 07:23 | RAD ---
Findings: Frontal and lateral chest radiographs. Comparison December 22, 2017. Cardiac silhouette is within normal limits. Calcified atherosclerotic plaque present within the tortuous thoracic aorta. No significant pulmonary vascular congestion. No pneumothorax. No definitive pleural effusion. Lungs are hyperexpanded. However there are increasing bibasilar patchy airspace opacities. No acute osseous abnormality. Soft tissues are unremarkable. IMPRESSION: Increased bibasilar pulmonary edema and/or pneumonia. Consider follow-up radiographs in six weeks. Electronically signed by: Daniel Reynolds MD 09/28/2018 7:21 AM CDT
[2018-09-28] MEDS ORDERED: OMEPRAZOLE CAP 20 MG CAP ONE (07:49)
[2018-09-28] MEDS ORDERED: DONEPEZIL HCL 5 MG TAB ONE (07:50)
[2018-09-28] MEDS ORDERED: FUROSEMIDE INJ 40 MG/4 ML VIAL ONE (07:50)
[2018-09-28] MEDS: DONEPEZIL HCL 5 MG TAB PO SCH (08:58)
[2018-09-28] MEDS: OMEPRAZOLE CAP 20 MG CAP PO SCH (08:58)
[2018-09-28] MEDS: MEGESTROL ACETATE 40 MG TAB PO SCH ×2 (08:58→12:38)
[2018-09-28] MEDS: ASPIRIN (ENTERIC COATED) 81 MG TAB PO SCH (08:59)
[2018-09-28] MEDS: FUROSEMIDE INJ 40 MG/4 ML VIAL IV SCH (08:59)
[2018-09-28] MEDS: ENOXAPARIN SODIUM 40 MG/0.4 ML SYG SUBCU SCH (08:59)
[2018-09-28] MEDS: MULTIPLE VITAMINS W/ MINERALS 1 EA TAB PO SCH (09:01)
[2018-09-28] MEDS ORDERED: SODIUM CHL 0.9% 50ML MIN-BAG+ 50 ML IVPB ONE (10:57)
[2018-09-28] MEDS ORDERED: cefTRIAXone SODIUM 1 GM VIAL ONE (10:58)
[2018-09-28] MEDS: cefTRIAXone SODIUM 1 GM in SODIUM CHL 0.9% 50ML MIN-BAG+ 50 ML IVPB SCH (11:05)
[2018-09-28] MEDS ORDERED: SODIUM CHLORIDE 0.9% 250ML 250 ML ONE (12:30)
[2018-09-28] MEDS ORDERED: AZITHROMYCIN IV 500 MG VIAL IVPB ONE (12:31)
[2018-09-28] MEDS: AZITHROMYCIN IV 500 MG in SODIUM CHLORIDE 0.9% 250ML 250 ML IVPB SCH (12:38)
--- NOTE | 2018-09-28 16:57 | PN ---
DATE: 09/28/18 SUPERVISING PHYSICIAN: Marvin Santos M.D. SUBJECTIVE: The patient is still having a little bit of shortness of breath but with ambulation. He has been wearing his oxygen at night. Shows a little improvement in saturations. He has had no other complaints. OBJECTIVE: VITAL SIGNS: Temperature 97.9, pulse 82, blood pressure 102/66, respirations 16, satting 93% on 3 liters nasal cannula at rest. I's and O's show a negative balance of 2160 with 440 in, 2600 out. Weight is 79.6 kg which is down from 82.14 kg. GENERAL: The patient is resting comfortably visiting with family. He is alert. Appears to be in no acute distress. CHEST: Lung sounds are fairly clear. More on the right than left is noted some rhonchi which is more prominent on the lateral posterior aspect. No wheezing or rales. HEART: Regular rate and rhythm. ABDOMEN: Soft, non-tender. Positive bowel sounds. EXTREMITIES: Trace edema. NEUROLOGIC: He is alert and oriented times three. LABORATORY: BNP today shows normal electrolytes. Carbon dioxide is 20 which has improved from admission. BUN 32, creatinine has gone to 1.42 with calcium 8.8. RADIOLOGY: Chest x-ray this morning per radiology interpretation showed increased bibasilar pulmonary edema and/or pneumonia. Consider followup radiographs in 6 weeks. ASSESSMENT: 1. Acute on chronic congestive heart failure with preserved ejection fraction with EF of 60-65% on echo done on admit , etiology likely due to right ventricular hypertrophy resulting in severe pulmonary hypertension presenting with increasing dyspnea, acute weight gain and BNP elevated on admission. 2. Acute exacerbation chronic obstructive pulmonary disease with bibasilar pneumonia community acquired, resulting in exacerbation of # 1 3. Renal insufficiency likely prerenal azotemia from some intravascular dehydration from administration of Lasix. 3. Gastroesophageal reflux disease. 4. Hyperlipidemia. 5. Previous myocardial infarctions. PLAN: Will continue today plan of care and treat for underlying community acquired pneumonia with Rocephin and azithromycin. He will be on aggressive pulmonary hygiene. I will change his Lasix from IV to p.o. today. His echocardiogram did show a good ejection fraction but pulmonary hypertension resulting in some diastolic dysfunction with EF noted to be at 60 to 65%. He does look dry, therefore will continue with slow fluids. Slow diuresis and fluid adjustment at this time is warranted. Again, will have him on DVT prophylaxis of Lovenox. He will probably need oxygen 24/7 once he goes home. Anticipate hopefully being able to discharge either by tomorrow or Tuesday. Until then will continue to monitor and treat as needed. #[id number] [facility]
[2018-09-28] MEDS: LOSARTAN POTASSIUM 25 MG TAB PO SCH (18:14)
[2018-09-28] MEDS: ATORVASTATIN 10 MG TAB PO SCH (20:37)
[2018-09-28] MEDS: SERTRALINE HCL 50 MG TAB PO SCH (20:37)
[2018-09-28] MEDS: TAMSULOSIN 0.4 MG CAP PO SCH (20:37)
[2018-09-29] MEDS: OMEPRAZOLE CAP 20 MG CAP PO SCH (06:10)
[2018-09-29] MEDS: KCL 20MEQ/0.45% NS 1,000 ML IVS PRN (08:04)
[2018-09-29] MEDS: ASPIRIN (ENTERIC COATED) 81 MG TAB PO SCH (09:39)
[2018-09-29] MEDS: DONEPEZIL HCL 5 MG TAB PO SCH (09:39)
[2018-09-29] MEDS: ENOXAPARIN SODIUM 40 MG/0.4 ML SYG SUBCU SCH (09:43)
[2018-09-29] MEDS: MULTIPLE VITAMINS W/ MINERALS 1 EA TAB PO SCH (09:43)
[2018-09-29] MEDS: MEGESTROL ACETATE 40 MG TAB PO SCH (09:43)
[2018-09-29] MEDS ORDERED: cefTRIAXone SODIUM 1 GM VIAL ONE (12:07)
[2018-09-29] MEDS ORDERED: SODIUM CHL 0.9% 50ML MIN-BAG+ 50 ML IVPB ONE (12:07)
[2018-09-29] MEDS: cefTRIAXone SODIUM 1 GM in SODIUM CHL 0.9% 50ML MIN-BAG+ 50 ML IVPB SCH (12:10)
[2018-09-29] MEDS ORDERED: SODIUM CHLORIDE 0.9% 250ML 250 ML ONE (12:37)
[2018-09-29] MEDS ORDERED: AZITHROMYCIN IV 500 MG VIAL IVPB ONE (12:38)
[2018-09-29] MEDS: AZITHROMYCIN IV 500 MG in SODIUM CHLORIDE 0.9% 250ML 250 ML IVPB SCH (12:54)
--- NOTE | 2018-09-29 13:30 | PN ---
SUPERVISING PHYSICIAN: Avril Santos MD DATE: 09/29/18 SUBJECTIVE: The patient is sitting up in bed eating. His family is at the bedside. We discussed his care and that he is progressively improving. OBJECTIVE: VITAL SIGNS: Temperature 98.4. Heart rate 61. Blood pressure 119/72. Respiratory rate 18. O2 saturation 97%. RESPIRATORY: Lungs are diminished at the bases. He still has a few scattered crackles and he is slightly tachypneic at times. CARDIAC: Regular rate and rhythm. GASTROINTESTINAL: Abdomen is soft, nondistended, nontender. Bowel sounds are positive. NEUROLOGIC: Awake, alert and oriented times three. LABORATORY: No labs to report today. RADIOLOGY: No radiology to report today. ASSESSMENT: 1. Acute on chronic congestive heart failure with preserved ejection fraction with EF of 60-65% on echo done on admit, etiology likely due to right ventricular hypertrophy resulting in severe pulmonary hypertension presenting with increasing dyspnea, acute weight gain and BNP elevated on admission. 2. Acute exacerbation chronic obstructive pulmonary disease with bibasilar pneumonia community acquired, resulting in exacerbation of #1. 3. Renal insufficiency likely prerenal azotemia from some intravascular dehydration from administration of Lasix. 3. Gastroesophageal reflux disease. 4. Hyperlipidemia. 5. Previous myocardial infarctions. PLAN: We will continue present supportive care. He will have to re-qualify for home oxygen as he only has a tank for portable oxygen and he will need to have an ambulation study for that. He is not on Lasix. Dr. Gonzalez has discontinued that and we actually gave him two doses and he has diuresed well. Hopefully he can go home tomorrow and have close followup with his physician, Dr. Jeff Santos. I will check magnesium and BNP in the morning as well as chest x- ray. We will continue to monitor the patient closely and follow as needed. #[id number] [facility]
[2018-09-29] MEDS: LOSARTAN POTASSIUM 25 MG TAB PO SCH (18:16)
[2018-09-29] MEDS: SERTRALINE HCL 50 MG TAB PO SCH (20:24)
[2018-09-29] MEDS: ATORVASTATIN 10 MG TAB PO SCH (20:24)
[2018-09-29] MEDS: TAMSULOSIN 0.4 MG CAP PO SCH (20:24)
[2018-09-30] MEDS: KCL 20MEQ/0.45% NS 1,000 ML IVS PRN ×2 (00:25→16:50)
[2018-09-30] MEDS: OMEPRAZOLE CAP 20 MG CAP PO SCH (06:07)
--- NOTE | 2018-09-30 07:17 | RAD ---
EXAM:Chest,2 Views CLINICAL INDICATION: CHF COMPARISON: 09/28/2018 FINDINGS:Two views of the chest were obtained. The heart size is normal. The pulmonary vascularity is unremarkable. Emphysematous changes are noted especially at the lung apices. Mild areas of scarring are noted in both lung bases. The lungs are otherwise clear. There is no pneumothorax. IMPRESSION: Stable emphysematous changes. No acute process in the chest. Electronically signed by: Sabino Gutierrez MD 09/30/2018 7:15 AM CDT
[2018-09-30] MEDS: MEGESTROL ACETATE 40 MG TAB PO SCH (09:39)
[2018-09-30] MEDS: ENOXAPARIN SODIUM 40 MG/0.4 ML SYG SUBCU SCH (09:40)
[2018-09-30] MEDS: MULTIPLE VITAMINS W/ MINERALS 1 EA TAB PO SCH (09:40)
[2018-09-30] MEDS: ASPIRIN (ENTERIC COATED) 81 MG TAB PO SCH (09:40)
[2018-09-30] MEDS: DONEPEZIL HCL 5 MG TAB PO SCH (09:40)
[2018-09-30] MEDS ORDERED: SODIUM CHL 0.9% 50ML MIN-BAG+ 50 ML IVPB ONE (11:08)
[2018-09-30] MEDS ORDERED: cefTRIAXone SODIUM 1 GM VIAL ONE (11:08)
[2018-09-30] MEDS: cefTRIAXone SODIUM 1 GM in SODIUM CHL 0.9% 50ML MIN-BAG+ 50 ML IVPB SCH (11:13)
[2018-09-30] MEDS ORDERED: SODIUM CHLORIDE 0.9% 250ML 250 ML ONE (12:38)
[2018-09-30] MEDS ORDERED: AZITHROMYCIN IV 500 MG VIAL IVPB ONE (12:39)
[2018-09-30] MEDS: AZITHROMYCIN IV 500 MG in SODIUM CHLORIDE 0.9% 250ML 250 ML IVPB SCH (12:48)
[2018-09-30] MEDS: IV SET AND CAP CHANGE INJ INJ SCH (16:16)
[2018-09-30] MEDS: LOSARTAN POTASSIUM 25 MG TAB PO SCH (17:34)
--- NOTE | 2018-09-30 20:37 | PN ---
DATE: 09/30/18 SUPERVISING PHYSICIAN: Marvin Santos M.D. SUBJECTIVE: The patient is lying in bed. He is confused but answers most questions appropriately. He has complaints of some coughing and shortness of breath, but gets confused as to why he needs his oxygen. His was unable to visit him today. I spoke with his daughter and we plan for discharge tomorrow as his oxygen for home will be set up at that time. OBJECTIVE: VITAL SIGNS: Temperature 97.7, heart rate 68, blood pressure 148/77, respiratory rate 18, O2 sat 88%. His oxygen is off. After placing his O2 back on the patient, his O2 sat is 91% on 3 liters nasal cannula. RESPIRATORY: Diminished breath sounds throughout. CARDIAC: Regular rate and rhythm. GASTROINTESTINAL: Abdomen is soft, nondistended, non-tender. Bowel sounds are positive. NEUROLOGIC: He is awake and alert. He is oriented to person, but is slightly confused and has difficulty answering some more complicated questions, and he also has a very poor memory. LABORATORY: Electrolytes are basically within normal limits with the exception of his calcium is slightly low at 8.3. BUN 28, creatinine has improved to 1.26. Chest x-ray shows stable emphysematous changes. No acute process in the chest. All other labs and films have been reviewed via the EMR. ASSESSMENT: 1. Acute on chronic congestive heart failure with preserved ejection fraction with EF of 60-65% on echo done on admit, etiology likely due to right ventricular hypertrophy resulting in severe pulmonary hypertension presenting with increasing dyspnea, acute weight gain and BNP elevated on admission. 2. Acute exacerbation chronic obstructive pulmonary disease with bibasilar pneumonia community acquired, resulting in exacerbation of #1. 3. Renal insufficiency likely prerenal azotemia from some intravascular dehydration from administration of Lasix. 3. Gastroesophageal reflux disease. 4. Hyperlipidemia. 5. Previous myocardial infarctions. PLAN: We plan for discharge in the morning. His daughter is coming from out of town to take him home. I have cautioned his family about driving, especially without his oxygen and recommended that he not do so. He does have oxygen coming and will be set up at his house tomorrow. His daughter will be here to take him home. I will hold on any lab for now as he is stable and he will need to followup with Dr. Santos, his primary care provider. Will continue to monitor closely and follow as needed. #[id number] [facility]
[2018-09-30] MEDS: SERTRALINE HCL 50 MG TAB PO SCH (20:39)
[2018-09-30] MEDS: ATORVASTATIN 10 MG TAB PO SCH (20:39)
[2018-09-30] MEDS: TAMSULOSIN 0.4 MG CAP PO SCH (20:39)
[2018-10-01 00:07] VITALS: TEMP 98.1
[2018-10-01 04:11] VITALS: O2SAT 93
[2018-10-01] MEDS: KCL 20MEQ/0.45% NS 1,000 ML IVS PRN (05:27)
[2018-10-01] MEDS: OMEPRAZOLE CAP 20 MG CAP PO SCH (06:05)
[2018-10-01 08:22] VITALS: BP 110/75
[2018-10-01] MEDS: ASPIRIN (ENTERIC COATED) 81 MG TAB PO SCH (09:06)
[2018-10-01] MEDS: DONEPEZIL HCL 5 MG TAB PO SCH (09:06)
[2018-10-01] MEDS: ENOXAPARIN SODIUM 40 MG/0.4 ML SYG SUBCU SCH (09:06)
[2018-10-01] MEDS: MULTIPLE VITAMINS W/ MINERALS 1 EA TAB PO SCH (09:06)
[2018-10-01] MEDS: MEGESTROL ACETATE 40 MG TAB PO SCH (09:06)
[2018-10-01] MEDS ORDERED: cefTRIAXone SODIUM 1 GM VIAL ONE (10:35)
[2018-10-01] MEDS ORDERED: SODIUM CHL 0.9% 50ML MIN-BAG+ 50 ML IVPB ONE (10:35)
[2018-10-01] MEDS: cefTRIAXone SODIUM 1 GM in SODIUM CHL 0.9% 50ML MIN-BAG+ 50 ML IVPB SCH (10:39)
[2018-10-01] MEDS ORDERED: SODIUM CHLORIDE 0.9% 250ML 250 ML ONE (11:39)
[2018-10-01] MEDS ORDERED: AZITHROMYCIN IV 500 MG VIAL IVPB ONE (11:39)
--- NOTE | 2018-10-09 09:54 | DS ---
SUPERVISING PHYSICIAN: Avril Santos MD DISCHARGE DIAGNOSIS: 1. Acute on chronic congestive heart failure with preserved ejection fraction of 60% to 65% on echocardiogram done on admission, etiology likely due to right ventricular hypertrophy resulting in severe pulmonary hypertension presenting with increasing dyspnea, acute weight gain and BNP elevated on admission. 2. Acute exacerbation of chronic obstructive pulmonary disease with bibasilar pneumonia, community acquired, resulting in exacerbation of #1. 3. Renal insufficiency, likely prerenal azotemia from some intravascular dehydration from administration of Lasix. 3. Gastroesophageal reflux disease. 4. Hyperlipidemia. 5. Previous myocardial infarctions. HISTORY OF PRESENT ILLNESS: This is an 87-year-old male patient that was seen at his primary care physician's office on the day of admission and was noted to have a 7-pound weight gain over 7 days. He had some peripheral edema with exertional dyspnea. He does utilize oxygen at night and was in the mid-80s on room air at rest. He does not usually require oxygen during the day, but he does need it at night, although he does forget to wear it. He does have a significant history of chronic obstructive pulmonary disease and previous myocardial infarction. He was in the hospital about 6 months ago for new onset of congestive heart failure with last echocardiogram noted to be in 2011 showing a preserved ejection fraction of 60% to 65%. The patient is a very poor historian and most of the history was obtained from previous medical records and clinic charts. Laboratory studies in the clinic showed an unremarkable CBC. EKG showed sinus rhythm with a first degree AV block. Chest x-ray showed pulmonary infiltrates, slightly worsened compared to previous exam from 08/10/17. The patient was referred to the hospital by his primary care physician for admission for having failed to respond to outpatient treatment measures for congestive heart failure with acute exacerbation. His BNP on admission to the hospital was elevated at 595. The patient denied any chest pain at time of admission. He was admitted in stable condition. HOSPITAL COURSE: Mr. Andrade was admitted for acute exacerbation of congestive heart failure as well as acute exacerbation of chronic obstructive pulmonary disease with community acquired pneumonia. His orders were initiated on the CHF guidelines as well as pneumonia guidelines. He was ordered aggressive pulmonary hygiene and he was also started on Rocephin and azithromycin. He had p.r.n. and scheduled nebulizer treatments. He was also started on aggressive Lasix therapy at 40 mg b.i.d. After several days, he was resumed on his normal dosing of p.o. Lasix. He was on DVT prophylaxis with Lovenox. He did have good ejection fraction, but he does have some pulmonary hypertension with diastolic dysfunction. He required oxygen throughout his stay and on discharge, it was recommended he use his oxygen at all times. His daughter did report that he was driving and I have cautioned her that he should not drive, especially if he does not have his oxygen on as he becomes very confused. A new oxygen set up was ordered from [employer] out of [place]. He will be discharged home today in stable condition. LABORATORY: Electrolytes basically within normal limits. BUN initially was 32 and today on discharge is 28. Creatinine did rise to 1.42, but today is 1.26. His baseline creatinine is approximately 1.2 to 1.3. RADIOLOGY: Echocardiogram shows a left ventricular ejection fraction of 60% to 65% with mild diastolic dysfunction. His followup chest x-ray shows stable emphysematous changes, no acute process in the chest. DISCHARGE PLAN: The patient will be discharged home today in stable condition. He will have new oxygen set up by [employer] out of [place] and he is to wear his oxygen 24 hours a day. Again, he has been cautioned not to drive. He is to resume his previous diet as well as his previous medications. He has completed his azithromycin and I will send him home on a different dose of cefdinir. He is to followup with his primary care physician, Dr. Santos, within the next 1 to 2 weeks. He is to return to the hospital for any problems or complications or followup with Dr. Santos's office. DISCHARGE MEDICATIONS: 1. Tamsulosin. 2. Atorvastatin. 3. Nitroglycerin. 4. Aspirin. 5. Multivitamin. 6. Furosemide. 7. Megestrol. 8. Sertraline. 9. Donepezil. 10. Omeprazole. 11. Losartan. 12. Cefdinir. #[id number] MTDD
== END 2018-10-01 12:45 | disposition home health service (06) | DRG 291 ==
LOC: MS 13:09
PROVIDERS: ADMIT Nurse Practitioner Family; ATTEND Nurse Practitioner Acute Care
DX: I11.0 Hypertensive heart disease with heart failure (principal); J18.9 Pneumonia, unspecified organism; J44.1 Chronic obstructive pulmonary disease with (acute) exacerbation; J44.0 Chronic obstructive pulmonary disease with (acute) lower respiratory infection; E46 Unspecified protein-calorie malnutrition; I50.33 Acute on chronic diastolic (congestive) heart failure; I25.2 Old myocardial infarction; I44.0 Atrioventricular block, first degree; K21.9 Gastro-esophageal reflux disease without esophagitis; E78.5 Hyperlipidemia, unspecified; I25.10 Atherosclerotic heart disease of native coronary artery without angina pectoris; N40.0 Benign prostatic hyperplasia without lower urinary tract symptoms; Z95.5 Presence of coronary angioplasty implant and graft; Z79.82 Long term (current) use of aspirin; Z91.048 Other nonmedicinal substance allergy status; Z79.899 Other long term (current) drug therapy; E86.0 Dehydration; I27.20 Pulmonary hypertension, unspecified; I07.1 Rheumatic tricuspid insufficiency; R79.89 Other specified abnormal findings of blood chemistry; Z99.81 Dependence on supplemental oxygen; Z68.23 Body mass index [BMI] 23.0-23.9, adult